=== PATIENT | female | born 1940 | race Caucasian/White ===

== ENCOUNTER → 2016-10-28 | Outpatient (CLI) | payer BC, MEDICARE ==
[~2016-10-28] MED LIST: HYDR-2164 PO; PRAM1TAB7 PO; [UNRECOGNIZED DRUG - CODE] PO
== END ==
LOC: IMA 12:44
PROVIDERS: ATTEND Family Medicine
DX: M85.80 Other specified disorders of bone density and structure, unspecified site (principal); Z12.31 Encounter for screening mammogram for malignant neoplasm of breast; N64.59 Other signs and symptoms in breast; E28.39 Other primary ovarian failure; M81.0 Age-related osteoporosis without current pathological fracture; M85.88 Other specified disorders of bone density and structure, other site; Z80.3 Family history of malignant neoplasm of breast; Z87.828 Personal history of other (healed) physical injury and trauma; Z90.722 Acquired absence of ovaries, bilateral
CPT/HCPCS: 77063; 77080; G0202